=== PATIENT | male | born 1955 | race Caucasian/White ===

== ENCOUNTER 2018-07-23 14:45 | Emergency (ER) | payer BC ==
--- NOTE | 2018-07-23 15:35 | Emergency Department Record ---
History of Present Illness - General Chief complaint: General Stated complaint: RIGHT FOOT SWELLING/DIABETIC Time Seen by Provider: 07/23/18 15:09 Source: Patient Mode of Arrival: Ambulatory Limitations: No limitations - History of Present Illness Initial comments: pt developed a black blister 2 days ago. then foot gradually has gotten red and has swelling and is tender MD Complaint: Extremity pain, Extremity swelling Onset/Timin -: Days(s) Location: Foot History of Same: No Consistency: Getting worse Worsens with: Exertion, Palpation, Walking, Weight bearing Associated Symptoms: Denies other symptoms - Related Data Home Medications Medication Instructions Recorded Confirmed Last Taken Aspirin [Aspir-Low] 81 mg PO DAILY 07/23/18 07/23/18 Unknown Empagliflozin [Jardiance] 25 mg PO DAILY 07/23/18 07/23/18 Unknown Insulin Lispro Protamin/Lispro 40 unit SQ TID 07/23/18 07/23/18 Unknown [Humalog Mix 75-25 Kwikpen] Lisinopril 20 mg PO DAILY 07/23/18 07/23/18 Unknown Simvastatin [Zocor] 20 mg PO DAILY 07/23/18 07/23/18 Unknown Allergies Allergy/AdvReac Type Severity Reaction Status Date / Time No Known Drug Intolerances Allergy Unknown Unverified 07/10/13 10:02 Allergies: Allergy Unknown Uncoded 07/10/13 10:02 Travel Screening - Travel/Exposure Within Last 30 Days Have you traveled within the last 30 days?: No Review of Systems Reviewed: No additional complaints except as noted below Constitutional: Reports: As per HPI. Denies: Chills, Fever, Malaise, Night sweats, Weakness, Weight change Eyes: Reports: As per HPI. Denies: Eye discharge, Eye pain, Photophobia, Vision change ENT: Reports: As per HPI. Denies: Congestion, Dental pain, Ear pain, Epistaxis, Hearing loss, Throat pain Respiratory: Reports: As per HPI. Denies: Cough, Dyspnea, Hemoptysis, Stridor, Wheezes Cardiovascular: Reports: As per HPI. Denies: Arrhythmia, Chest pain, Dyspnea on exertion, Edema, Murmurs, Orthopnea, Palpitations, Paroxysmal nocturnal dyspnea, Rheumatic Fever, Syncope Endocrine: Reports: As per HPI. Denies: Fatigue, Heat or cold intolerance, Polydipsia, Polyuria Gastrointestinal: Reports: As per HPI. Denies: Abdominal pain, Constipation, Diarrhea, Hematemesis, Hematochezia, Melena, Nausea, Vomiting Genitourinary: Reports: As per HPI. Denies: Dysuria, Frequency, Hematuria, Incontinence, Retention, Testicular pain, Testicular mass, Urgency Musculoskeletal: Reports: As per HPI. Denies: Arthralgia, Back pain, Gout, Joint swelling, Myalgia, Neck pain Skin: Reports: As per HPI. Denies: Bruising, Change in color, Change in hair/nails, Lesions, Pruritus, Rash Neurological: Reports: As per HPI. Denies: Abnormal gait, Confusion, Headache, Numbness, Paresthesias, Seizure, Tingling, Tremors, Vertigo, Weakness Psychiatric: Reports: As per HPI. Denies: Anxiety, Auditory hallucinations, Depression, Homicidal thoughts, Suicidal thoughts, Visual hallucinations Hematological/Lymphatic: Reports: As per HPI. Denies: Anemia, Blood Clots, Easy bleeding, Easy bruising, Swollen glands Past Medical History - SOCIAL HISTORY Smoking Status: Former smoker Alcohol Use: None Drug Use: None - RESPIRATORY Hx Respiratory Disorders: No - CARDIOVASCULAR Hx Cardio Disorders: No - NEURO Hx Neuro Disorders: No - GI Hx GI Disorders: No - Hx Genitourinary Disorders: No - ENDOCRINE Hx Endocrine Disorders: Yes Hx Diabetes: Yes - MUSCULOSKELETAL Hx Musculoskeletal Disorders: No - PSYCH Hx Psych Problems: No - HEMATOLOGY/ONCOLOGY Hx Hematology/Oncology Disorders: No Family Medical History Any Significant Family History?: No Physical Exam - General General Appearance: Alert, Oriented x3, Cooperative, Mild distress - Head Head exam: Normal inspection - Eye Eye exam: Normal appearance, PERRL, EOMI Pupils: Normal accommodation - ENT ENT exam: Normal exam, Mucous membranes moist, Normal external ear exam, Normal orophraynx Ear exam: Normal external inspection. negative: External canal tenderness Nasal Exam: Normal inspection. negative: Discharge, Sinus tenderness Mouth exam: Normal external inspection, Tongue normal Teeth exam: Normal inspection. negative: Dental caries Throat exam: Normal inspection. negative: Tonsillar erythema, Tonsillar exudate - Neck Neck exam: Normal inspection, Full ROM. negative: Tenderness - Respiratory Respiratory exam: Normal lung sounds bilaterally. negative: Respiratory distress - Cardiovascular Cardiovascular Exam: Regular rate, Normal rhythm, Normal heart sounds - GI/Abdominal GI/Abdominal exam: Soft, Normal bowel sounds. negative: Tenderness - Rectal Rectal exam: Deferred - exam: Deferred - Extremities Extremities exam: Normal inspection, Full ROM, Normal capillary refill. negative: Tenderness Image of Feet: 1 - erythema, swelling 2 - dark blister - Back Back exam: Reports: Normal inspection, Full ROM. Denies: Muscle spasm, Rash noted, Tenderness - Neurological Neurological exam: Alert, CN II-XII intact, Normal gait, Oriented X3 - Psychiatric Psychiatric exam: Normal affect, Normal mood - Skin Skin exam: Dry, Intact, Normal color, Warm Course Vital Signs 07/23/18 14:50 Temperature 97.6 F Pulse Rate 94 H Respiratory 20 Rate Blood Pressure 152/84 Pulse Ox 97 - Reevaluation(s) Reevaluation #1: 07/23/18 17:20 pt has fb in tuft of toe and fxs of the bases of the 1st and 2nd metatarsals Medical Decision Making - Lab Data Result diagrams: 07/23/18 15:35 07/23/18 15:35 Disposition Disposition: Transfer Clinical Impression: Cellulitis Qualifiers: Site of cellulitis: extremity Site of cellulitis of extremity: lower extremity Laterality: right Qualified Code(s): L03.115 - Cellulitis of right lower limb Multiple fractures of foot Qualifiers: Encounter type: initial encounter Fracture type: closed Laterality: right Qualified Code(s): S92.901A - Unspecified fracture of right foot, initial encounter for closed fracture Foreign body in foot, right, infected Qualifiers: Encounter type: initial encounter Qualified Code(s): S90.851A - Superficial foreign body, right foot, initial encounter; L08.9 - Local infection of the skin and subcutaneous tissue, unspecified Disposition: Acute Care Hospital Transfer Transfer To: [facility] Reason For Transfer: needs ortho Accepting Physician: sherri Time Discussed w/Accepting Physician: 17:23 Forms: Patient Portal Access Quality - Quality Measures Quality Measures: N/A - Blood Pressure Screening Does Patient Have Any of the Following: No Blood Pressure Classification: Pre-Hypertensive BP Reading Systolic Measurement: 152 Diastolic Measurement: 84 Screening for High Blood Pressure: < Pre-Hypertensive BP, F/U Documented > [G8950] Pre-Hypertensive Follow-up Interventions: Follow-up with rescreen every year.
[2018-07-23 16:20] LABS: ABSOLUTE NEUTROPHIL COUNT 5.84; BASO % 0.2 % (0-6); EOS % 2.2 % (0-6); GRAN % 65.6 % (47-80); HEMATOCRIT 46.6 % (42.0-52.0); HEMOGLOBIN 15.3 gm/dl (14.0-18.0); LYMPH % 21.8 % (16-45); MEAN CELL VOLUME 89.3 fl (81-97); MEAN CORPUSCULAR HEMOGLOBIN 29.3 pg (27-33); MEAN CORPUSCULAR HGB CONC 32.8 g/dl (32-36); MONO % 10.2 % (0-9); PLATELET COUNT 140 K/uL (130-400); RED BLOOD COUNT 5.22 M/uL (4.40-5.70); RED CELL DISTRIBUTION WIDTH 14.7 % (11.5-14.5); WHITE BLOOD COUNT W/O DIFF 8.9 K/uL (4.2-12.2)
[2018-07-23 16:30] LABS: BLOOD UREA NITROGEN 20 mg/dL (8-23)
[2018-07-23 16:31] LABS: CREATININE 0.9 mg/dL (0.7-1.2); EST GLOMERULAR FILTRATION RATE > 60 mL/min
[2018-07-23 16:33] LABS: GLUCOSE,RANDOM 228 mg/dL (74-109)
[2018-07-23] MEDS ORDERED: CLINDAMYCIN PHOS/D5W 900MG 900 MG/50 ML BAG IVPB ONE (16:53)
[2018-07-23] MEDS ORDERED: CLINDAMYCIN 600MG/50ML PREMIX 600 MG/50 ML BAG IVPB ONE (17:03)
--- NOTE | 2018-07-24 13:16 | RADIOLOGY REPORT ---
DATE: 07/23/2018. EXAM: X-RAY OF THE RIGHT FOOT. HISTORY: THE PATIENT IS DIABETIC. THE PATIENT HAS A WOUND ON THE GREAT TOE. TECHNIQUE: Three views of the right foot are provided without comparison examinations. COMPARISON: None. FINDINGS: There is a fracture at the base of the first metatarsal and within the proximal diaphysis of the second metatarsal. There is an approximately 2.0 mm medial displacement of the distal fracture fragment of the second metatarsal fracture. Fracture of the base of the first metatarsal extends to the articular surface. I suspect these findings are likely related to a neuropathic foot. Radiopaque foreign bodies identified within the plantar soft tissue at the base of the second metatarsophalangeal joint. Extensive soft tissue swelling is noted over the right foot. No obvious cortical destruction is noted within the base of the first digit to suggest osteomyelitis. However osteomyelitis cannot be excluded. If there is further clinical concern then and MRI of the right foot can be obtained for further evaluation. IMPRESSION: 1. FRACTURES OF THE FIRST AND SECOND METATARSALS ARE IDENTIFIED DISCUSSED ABOVE. 2. RADIOPAQUE FOREIGN BODIES NOTED WITHIN THE PLANTAR SOFT TISSUE DISCUSSED ABOVE. 3. SOFT TISSUE SWELLING IS NOTED OVER THE RIGHT FOOT SUGGESTING CELLULITIS. 4. NO OBVIOUS CORTICAL DESTRUCTION IS NOTED WITHIN THE FIRST DIGIT TO SUGGEST OSTEOMYELITIS. HOWEVER, OSTEOMYELITIS CANNOT BE EXCLUDED. IF THERE IS FURTHER CLINICAL CONCERN THEN AN MRI OF THE RIGHT FOOT CAN BE OBTAINED FOR FURTHER CHARACTERIZATION. Job Number: [id number] MTDD
== END 2018-07-23 18:10 | disposition short-term general hospital (02) ==
LOC: ER 14:45
DX: S92.311A Displaced fracture of first metatarsal bone, right foot, initial encounter for closed fracture (principal); S92.321A Displaced fracture of second metatarsal bone, right foot, initial encounter for closed fracture; S90.454A Superficial foreign body, right lesser toe(s), initial encounter; L03.031 Cellulitis of right toe; E11.9 Type 2 diabetes mellitus without complications; Z79.4 Long term (current) use of insulin; Z87.891 Personal history of nicotine dependence; X58.XXXA Exposure to other specified factors, initial encounter
CPT/HCPCS: 80048; 85025; 96365; 99285